=== PATIENT | male | born 1980 | race Caucasian/White ===

== ENCOUNTER 2016-10-09 06:37 | Observation (INO) | payer OTHER ==
[~2016-10-09] VITALS: Ht 180.3 cm; Wt 105.0 kg
[2016-10-09] MEDS ORDERED: ONDANSETRON (ODT) 4 MG TAB ODT STA (07:13)
--- NOTE | 2016-10-09 07:21 | ERD ---
ER Documentation Chief Complaint Date/Time DATE: 10/09/16 TIME: 07:15 Chief Complaint left rib pain from a fall this am. no loc no neck or back pain HPI The patient is a 35-year-old male with no significant past medical history who presents for left rib pain status post trip and fall in the shower this morning. He reports turning around quickly to close a window and he slipped. He fell directly on the edge of the tub on his left rib cage. He denies hitting his head, shoulder, hip, or any other part of his body. He denies loss of consciousness, nausea, vomiting, feeling dazed, or any other symptoms. He denies respiratory distress, difficulty breathing, chest pain. He states that his pain is severe at 12/10, worse with inhalation and movement. ROS All systems reviewed and are negative except as per history of present illness. Physical Exam Vitals Vital Signs Date Time Temp Pulse Resp B/P Pulse Ox O2 Delivery O2 Flow Rate FiO2 10/09/16 06:41 98.5 101 21 141/92 99 Physical Exam INITIAL VITAL SIGNS: Reviewed by me, oximetry 99% on room air. GENERAL: Alert. Well developed and well nourished. No respiratory distress. Appears in pain, moaning. HEAD: Head is normocephalic. Atraumatic. EYES: EOMI. No scleral icterus. No conjunctival injection. ENT: External ears, nose, and mouth normal. Nasal passages patent. Moist mucous membranes. NECK: Supple. Full range of motion. Trachea midline. No bony or myofascial tenderness palpation. No step-off. RESPIRATORY: No tachypnea. Clear to auscultation bilaterally. No wheezing, rales , or rhonchi. CHEST: No external signs of trauma. Normal excursion with respiration. No flail. Left lower rib gill box tender to palpation. No ecchymosis. CV: Regular rate and rhythm. No murmurs, rubs, or gallops ABDOMEN: Soft, non-distended, non-tender. No masses. Bowel sounds normal in all quadrants. BACK: No CVA tenderness. No bony or myofascial tenderness to palpation. No step- off. No external signs of trauma. EXTREMITIES: No obvious deformity. No clubbing or cyanosis. No edema. SKIN: Warm and dry. No diaphoresis. No obvious rashes or lesions. NEUROLOGIC: Alert and oriented x 3. Appropriate. Face is symmetric. Speech is normal. Moves all extremities equally. Results 24 hrs Current Medications Medications (Trade) Dose Ordered Sig/Channing Route PRN Reason Start Time Stop Time Status Last Admin Dose Admin Morphine Sulfate (morphine) 4 mg ONCE ONCE IM 10/09/16 07:30 10/09/16 07:31 DC 10/09/16 07:20 Ondansetron HCl (Zofran Odt) 4 mg ONCE STAT ODT 10/09/16 07:13 10/09/16 07:15 DC 10/09/16 07:20 Ketorolac Tromethamine (Toradol) 30 mg ONCE STAT IM 10/09/16 08:11 10/09/16 08:12 DC 10/09/16 08:21 Ondansetron HCl (Zofran Inj) 4 mg BRIDGE ORDER PRN IV NAUSEA AND/OR VOMITING 10/09/16 10:00 10/10/16 09:59 Acetaminophen (Tylenol Tab) 650 mg ER BRIDGE PRN PO MILD PAIN/FEVER 10/09/16 10:00 10/10/16 09:59 [place] [id number] Radiology Main Line: [phone] DIAGNOSTIC IMAGING REPORT Patient: SHELDON ABRAHAM : 1980 Age: 35 Sex: M MR #: [id number] DOS: 10/09/16 0712 Ordering MD: RADHIKA CURIEL NP Location: [facility] Room/Bed: PROCEDURE: Xray bilateral ribs and chest. CLINICAL INDICATION: Trauma. Bilateral rib pain. TECHNIQUE: Frontal and oblique views of the bilateral ribs. Frontal view of the chest. Total of 8 views. COMPARISON: None available FINDINGS: There is mild left basilar atelectasis. The lungs are otherwise clear. The heart size is normal. There is no pleural effusion or pneumothorax. There are acute nondisplaced fractures of the left seventh, eighth, ninth, and tenth ribs. There is no other rib fracture. There is no lytic or blastic lesion. No radiopaque foreign body is identified. The soft tissues are unremarkable. IMPRESSION: 1. Mild left basilar atelectasis. 2. Acute fractures of the left seventh, eighth, ninth, and tenth ribs. 3. No pneumothorax. 4. Otherwise unremarkable study. RPTAT: QQ .Brayden Shah MD, MD Date Time Electronically viewed and signed by .Brayden Shah MD, on 10/09/2016 08:12 .R/ CC: RADHIKA CURIEL, CLIVE Procedures/MDM Nursing Notes Reviewed Previous Medical Records requested via [employer]. EMERGENCY DEPARTMENT COURSE / MEDICAL DECISION MAKING: The patient comes to the ED secondary to left-sided rib pain status post slip and fall in the shower approximately 30 minutes prior to arrival. Differential diagnosis upon initial evaluation includes but is not limited to: Rib fracture, rib dislocation, pneumothorax, concussion/TBI, spinal injury, and others. The patient was treated with morphine 4 mg IM, Zofran 4 mg by mouth. Toradol 30mg IM. Left rib x-ray per radiology report: IMPRESSION: 1. Mild left basilar atelectasis. 2. Acute fractures of the left seventh, eighth, ninth, and tenth ribs. 3. No pneumothorax. 4. Otherwise unremarkable study. The patient denies hitting his head, loss of consciousness, feeling dazed, nausea, or vomiting. As such, I have low suspicion at this time for concussion/ TBI. The patient denies any neck or back pain. His neck and back exams were normal and benign. As such, I have low suspicion at this time for any bony back injury, disc injury, nerve injury, or cord compression. The patient's breathing is even and unlabored. His lungs are clear to auscultation bilaterally. His lungs were normal on x-ray series. As such, I have low suspicion for pneumothorax at this time. Final impression: Acute fractures of the left seventh, eighth, ninth, and tenth ribs The case was discussed with supervising physician Dr. Mclaughlin. The patient will be admitted to the hospital for pain control. Departure Diagnosis: Primary Impression: Ribs, multiple fractures RADHIKA CURIEL, CLIVE Oct 09, 2016 07:21 RADHIKA CURIEL NP Oct 09, 2016 07:21
[2016-10-09] MEDS ORDERED: morphine 10 MG INJ IM ONE (07:30)
[2016-10-09] MEDS ORDERED: KETOROLAC 30 MG INJ IM STA (08:11)
--- NOTE | 2016-10-09 08:12 | RADRPT ---
PROCEDURE: Xray bilateral ribs and chest. CLINICAL INDICATION: Trauma. Bilateral rib pain. TECHNIQUE: Frontal and oblique views of the bilateral ribs. Frontal view of the chest. Total of 8 views. COMPARISON: None available FINDINGS: There is mild left basilar atelectasis. The lungs are otherwise clear. The heart size is normal. There is no pleural effusion or pneumothorax. There are acute nondisplaced fractures of the left seventh, eighth, ninth, and tenth ribs. There is no other rib fracture. There is no lytic or blastic lesion. No radiopaque foreign body is identified. The soft tissues are unremarkable. IMPRESSION: 1. Mild left basilar atelectasis. 2. Acute fractures of the left seventh, eighth, ninth, and tenth ribs. 3. No pneumothorax. 4. Otherwise unremarkable study. RPTAT: QQ .Brayden Shah MD, Date Time Electronically viewed and signed by .Brayden Shah MD, on 10/09/2016 08:12 .R/
[2016-10-09] MEDS ORDERED: ACETAMINOPHEN 325 MG TAB PO PRN ×2 (10:00→16:30)
[2016-10-09] MEDS ORDERED: ONDANSETRON 4 MG INJ IV PRN (10:00)
[2016-10-09] MEDS ORDERED: ONDANSETRON 4 MG INJ IV STA (12:46)
[2016-10-09] MEDS ORDERED: morphine 4 MG/ML VIAL IV STA (12:46)
[2016-10-09] MEDS ORDERED: ONDANSETRON 4 MG TAB PO PRN (16:30)
[2016-10-09] MEDS ORDERED: DOCUSATE SODIUM 100 MG CAP PO PRN (16:30)
[2016-10-09] MEDS ORDERED: NACL 0.9% 3 ML SYG IV SCH (16:30)
[2016-10-09] MEDS: PANTOPRAZOLE (EC) 40 MG TAB PO SCH (16:32)
--- NOTE | 2016-10-09 18:20 | HP ---
DATE OF ADMISSION: 10/09/2016 MACHINING AND ASSEMBLY SUPERVISOR: None. CHIEF COMPLAINT: Status post fall and left axillary pain. HISTORY OF PRESENT ILLNESS: This is a 35-year-old gentleman with past medical history of alcoholism , alcoholic gastritis, nicotine dependency, smokes about 10 to 15 cigarettes per day, who this irene ng was in the shower and had a slip and fall and hit his left side of his chest to a bar in the show er. He tried to go back to sleep and sleep off the pain, although he was not able to be deep and th e pain was unbearable. Therefore, he presented to [facility] Emergency Room where he was f ound to have acute fracture of the left 7, 8, 9, and 10 ribs. No pneumothorax, otherwise unremarkab le study. He was treated with Zofran, morphine, Tylenol, Toradol in the course of the emergency eileen m. At this time, the patient denies any shortness of breath, chest pain, nausea, vomiting, diarrhea . No headache, dizziness, lightheadedness. No change in visual acuity, diplopia, photophobia. No recent travel history. No sick contact. He denies of having any recent history of alcohol intake f or the past month. No illicit drugs. He still smokes about 10 to 15 cigarettes, [place], per day. At this time, patient denies having any discomfort, except mild left-sided axillary pain. PAST MEDICAL AND SURGICAL HISTORY: As above per HPI. MEDICATIONS: None. ALLERGIES: NO KNOWN DRUG ALLERGIES. FAMILY HISTORY: No history of cancer, myocardial infarction, diabetes mellitus. SOCIAL HISTORY: Positive for history of alcohol abuse, in remission since last month. Positive for smoking 10 to 15 cigarettes per day for the past 10 years. No illicit drugs. REVIEW OF SYSTEMS: As above per HPI, otherwise 12 review of systems has been found to be negative. PHYSICAL EXAMINATION: VITAL SIGNS: Temperature 98.5, pulse 58, respiration 18, blood pressure 127/64, oxygen saturation 9 8% in room air. GENERAL APPEARANCE: The patient is lying in the bed comfortably without any acute distress. He is awake, alert, oriented. He is able to answer my questions properly. EYES AND ENT: Conjunctivae and lids are normal. Pupils are normal. Extraocular normal. Hearing g rossly normal. Pupils are normal. Oral mucosa is moist. NECK: Supple. Trachea is midline. No lymphadenopathy. RESPIRATORY: Effort is normal. Clear to auscultation bilaterally. CARDIOVASCULAR: Normal S1, S2. Regular rhythm and rate. No murmur, no bruits, no edema. Peripher al pulses, radial pulses palpable. Cap refill is normal. CHEST: Normal expansion of thorax during inspiration, although during the deep inspiration he has p ain in the left axillary region. GASTROINTESTINAL: Abdomen is soft, nontender, not distended. Bowel sounds present. No guarding, n o rebound. GENITOURINARY: Deferred. MUSCULOSKELETAL: Upper and lower extremities within normal limits. Full range of motion. Strength 5/5 in both upper and lower extremities. NEUROLOGIC: Cranial nerves II through XII are grossly intact. PSYCHIATRIC: Normal judgment and insight. Alert and oriented x3. Mood and affect is normal. LABORATORY WORK AND IMAGING: Chest x-ray/x-ray bilateral rib and chest showed mild left basilar ate lectasis, acute fracture of the left 7, 8, 9, and 10 ribs. No pneumothorax, otherwise unremarkable study. ASSESSMENT AND PLAN: 1. Left-sided rib fractures from 7 to 10. The patient will be placed on pain medication via Percoc et, morphine. Encourage incentive spirometer. Will followup chest x-ray in a.m. to review for pneu mothorax. At this time, there is no evidence of pneumothorax on chest x-ray. 2. For deep venous thrombosis prophylaxis, on sequential compression devices and the patient is amb ulatory. 3. For gastrointestinal prophylaxis, on proton pump inhibitor. 4. History of alcoholism. Education was provided. The patient has been instructed to quit drinkin g and has been started on folic acid, multivitamin, and thiamine. 5. Nicotine dependency. Education was provided regarding the risks of smoking. Smoking cessation was recommended. The patient has been started on nicotine patch. Total amount of time was spent for evaluation of this patient and admission workup 45 minutes. Dictated By: LIANA WATTERS/DAWSON Conf#: [id number] DID#: [id number]
[2016-10-09 20:00] VITALS: BP 169/80; RESP 20; TEMP 98.5
[2016-10-09 20:30] VITALS: Ht 180.3 cm; Wt 105.0 kg
[2016-10-09 20:40] VITALS: PULSE 68
[2016-10-09 21:00] VITALS: BP 169/80; RESP 20
[2016-10-09] MEDS: OXYCODONE/ACETAMINOPHEN (5/325) TAB PO PRN (21:06)
[2016-10-09] MEDS: morphine 2 MG INJ IV PRN (22:53)
[2016-10-10] VITALS (8 sets, daily range): BP systolic 103–130; BP diastolic 62–72; PULSE 59–87; RESP 15–18
[2016-10-10] MEDS: IBUPROFEN 600 MG TAB PO PRN ×2 (01:48→13:06)
[2016-10-10] MEDS: morphine 2 MG INJ IV PRN ×2 (04:36→11:15)
[2016-10-10] MEDS: PANTOPRAZOLE (EC) 40 MG TAB PO SCH (05:52)
[2016-10-10] MEDS ORDERED: PANTOPRAZOLE (EC) 40 MG TAB PO SCH (06:00)
[2016-10-10 07:50] LABS: POTASSIUM 4.3 mmol/L (3.5-5.1)
[2016-10-10 07:53] LABS: CREATININE 0.6 mg/dl (0.61-1.24)
[2016-10-10 07:54] LABS: CALCIUM 8.4 mg/dl (8.4-10.2)
[2016-10-10 08:03] LABS: BASOPHILS % 0.5 % (0.0-2.0); EOSINOPHILS # 0.5 10^3/ul (0.0-0.5); EOSINOPHILS % 8.8 % (0.0-7.0); HEMATOCRIT 32.9 % (42.0-52.0); HEMOGLOBIN 11.6 g/dl (14.0-18.0); LYMPHOCYTES # 1.8 10^3/ul (0.8-2.9); LYMPHOCYTES % 35.1 % (15.0-51.0); MEAN CORPUSCULAR HEMOGLOBIN 34.3 pg (29.0-33.0); MEAN CORPUSCULAR HGB CONC 35.4 g/dl (32.0-37.0); MEAN CORPUSCULAR VOLUME 96.8 fl (82.0-101.0); MEAN PLATELET VOLUME 10.7 fl (7.4-10.4); MONOCYTE # 0.6 10^3/ul (0.3-0.9); MONOCYTES % 11.6 % (0.0-11.0); NEUTROPHIL # 2.3 10^3/ul (1.6-7.5); PLATELET COUNT 81 10^3/UL (140-440); RED BLOOD COUNT 3.39 10^6/ul (4.70-6.10); RED CELL DISTRIBUTION WIDTH 13.7 % (11.5-14.5); UNCORRECTED WBC 5.2 10^3/ul (4.8-10.8); WHITE BLOOD COUNT 5.2 10^3/ul (4.8-10.8)
[2016-10-10 08:05] LABS: CONDITION 1
[2016-10-10] MEDS: OXYCODONE/ACETAMINOPHEN (5/325) TAB PO PRN ×2 (08:13→16:54)
[2016-10-10] MEDS ORDERED: NICOTINE (14 MG/24 HR) PATCH TRANSDERM SCH (09:00)
[2016-10-10] MEDS ORDERED: MULTIVITAMINS THERAPEUTIC TAB PO SCH (09:00)
[2016-10-10] MEDS ORDERED: THIAMINE 100 MG TAB PO SCH (09:00)
[2016-10-10] MEDS ORDERED: FOLIC ACID 0.4 MG TAB PO SCH (09:00)
--- NOTE | 2016-10-10 14:59 | PDOCDIS ---
Discharge Instructions CONDITION Patient Condition: Good HOME CARE INSTRUCTIONS: Special Diet: regular ACTIVITY: Activity Restrictions: Slowly Increase Activity Rest between Activity Avoid heavy lifting Do not operate Power Tool Avoid Heavy Housework FOLLOW UP/APPOINTMENTS Appointments Follow-up with primary care physician as outpatient OTHER ORDERS: Other Orders: In case of any chest pain or shortness of breath return to emergency room immediately SCHOOL/WORK RELEASE May return to School/Work with: With Restrictions (Light activity 4 weeks) LIANA RONDON MD Oct 10, 2016 14:59
[2016-10-10] MEDS ORDERED: MULTI PO (15:02)
[2016-10-10] MEDS ORDERED: Nicotine (14 Mg/24 Hr) TRANSDERM (15:02)
[2016-10-10] MEDS ORDERED: Thiamine PO (15:02)
[2016-10-10] MEDS ORDERED: IBUP-1542 PO (15:02)
[2016-10-10] MEDS ORDERED: FOLI0.4T2 PO (15:02)
[2016-10-10] MEDS ORDERED: Oxycodone/Acetamin (5/325) PO (15:02)
--- NOTE | 2016-10-10 18:29 | DS ---
DATE OF ADMISSION: 10/09/2016 DATE OF DISCHARGE: 10/10/2016 MOLECULAR PATHOLOGIST: None. DIAGNOSES: 1. Left-sided rib fractures from 7 to 10. 2. Thrombocytopenia secondary to history of alcohol abuse. 3. History of alcohol abuse. 4. Nicotine dependency. MEDICATIONS: 1. Folic acid. 2. Thiamine. 3. Ibuprofen. 4. Multivitamin. 5. Nicotine patch. 6. Percocet. ALLERGIES: NO KNOWN DRUG ALLERGIES. HOSPITAL COURSE: This is a 35-year-old gentleman with past medical history of alcoholism, alcoholic gastritis, nicotine dependency who smokes about 5 to 15 cigarettes per day who on the morning of had a slip and fall and hit his left side of chest to the bar in the shower. He tried to g et back to sleep and sleep off the pain, although he was not able to take deep breaths and pain was unbearable. Therefore, he presented to [facility], where he was found to elliott ve acute fracture of the left 7th to 10th ribs on the left side. There was no pneumothorax, otherwi se unremarkable study. The patient was started on Zofran, morphine, Tylenol, was admitted to [facility] floor, where he has been continued on pain medications. He denies having any chest pain, shortn ess of breath, nausea, vomiting, diarrhea at this time. The patient has been able to tolerate oral intake, although with activity, he continues to have left-sided pain. An incentive spirometer was p rovided. At this time, the patient is medically stable to be discharged home with close followup wi th his primary care physician as outpatient. The patient was found to have thrombocytopenia with pl atelets of 81. This is likely secondary to his history of alcoholism. Great amount of information was provided. The patient was instructed to stop drinking and stop smoking. Dictated By: LIANA WATTERS/NTS Conf#: [id number] DID#: [id number]
[2016-10-11] MEDS ORDERED: INFLUENZA VIRUS VACCINE 0.5 ML (DISPENSING) IM* ONE (09:00)
== END 2016-10-10 17:51 | disposition home or self-care (01) ==
LOC: FTE 06:37 → MS4 09:51
PROVIDERS: ADMIT Family Medicine; ATTEND Family Medicine
DX: S22.42XA Multiple fractures of ribs, left side, initial encounter for closed fracture (principal); F17.210 Nicotine dependence, cigarettes, uncomplicated; F10.21 Alcohol dependence, in remission; W18.2XXA Fall in (into) shower or empty bathtub, initial encounter; Y93.9 Activity, unspecified; Y99.9 Unspecified external cause status; Y92.9 Unspecified place or not applicable
CPT/HCPCS: 71110; 80048; 85025; 96372; 96374; 96375; 96376; J1885; J2270; J2405; Z7500; Z7502; Z7610; G0378

== ENCOUNTER 2017-12-03 12:13 | Day surgery (SDC) | END 2017-12-03 17:58 | disposition home or self-care (01) ==

== ENCOUNTER 2018-03-04 21:21 | Emergency (ER) | END 2018-03-05 01:47 | disposition home or self-care (01) ==

== ENCOUNTER 2018-04-21 18:25 | Inpatient (IN) | END 2018-04-23 15:00 | disposition left against medical advice (07) | DRG 159 ==

== ENCOUNTER 2018-10-11 20:17 | Emergency (ER) | payer OTHER ==
[~2018-10-11] VITALS: Ht 180.3 cm; Wt 104.5 kg
[~2018-10-11 20:17] MED LIST: FLUC200T52 PO; GABA100C14 PO; HYDR-4011 PO; LOSA25TA12 PO; METF500T24 PO; NADO40TA31 PO; NAPR-688 PO; PANT40TA4 PO; THIA100T56 PO; [UNRECOGNIZED DRUG - CODE] SL
[2018-10-11 21:08] VITALS: Ht 180.3 cm; Wt 104.5 kg
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
[2018-10-11] MEDS ORDERED: KETOROLAC 15 MG INJ IM STA (23:06)
[2018-10-11] MEDS ORDERED: CHLO473M4 MM (23:23)
[2018-10-11] MEDS ORDERED: PRED20TA PO (23:23)
[2018-10-11] MEDS ORDERED: predniSONE 20 MG TAB PO ONE (23:30)
[2018-10-11] MEDS ORDERED: CHLORHEXIDINE GLUCONATE 15 ML UD CUP MT ONE (23:30)
[2018-10-12 00:30] VITALS: BP 151/97; PULSE 89; RESP 18
== END 2018-10-12 00:45 | disposition home or self-care (01) ==
LOC: E/R 20:17
DX: K12.1 Other forms of stomatitis (principal); I10 Essential (primary) hypertension; E11.9 Type 2 diabetes mellitus without complications; Z79.84 Long term (current) use of oral hypoglycemic drugs; Z87.891 Personal history of nicotine dependence
CPT/HCPCS: 96372; J1885; J7512; Z7502; Z7610

== ENCOUNTER 2018-11-04 13:20 | Emergency (ER) | payer OTHER ==
[~2018-11-04] VITALS: Ht 180.3 cm; Wt 104.9 kg
[~2018-11-04 13:20] MED LIST changes: +CHLO473M4 MM; -FLUC200T52 PO; -GABA100C14 PO; -HYDR-4011 PO; -NAPR-688 PO; +PRED20TA PO; -THIA100T56 PO
[2018-11-04 13:48] VITALS: BP 147/86; PULSE 76; RESP 18; Ht 180.3 cm; Wt 104.9 kg
[2018-11-04] MEDS ORDERED: PRED20TA PO (15:21)
--- NOTE | 2018-11-04 15:50 | ERD ---
ER Documentation Chief Complaint Chief Complaint painful pen sores inside mouth X 1 month HPI Patient is a 38-year-old male with diabetes who presents with sores inside of his mouth. He says that he wants a refill for steroids. He has had a history of mouth sores off and on since September. They are painful. He tried Neosporin. Upon review of old medical records the patient has previous visits for similar. Review of the emergency department information exchange system shows visits to 2 separate emergency department. He does have a primary doctor and a infectious disease doctor Dr. Viveros. ROS All systems reviewed and are negative except as per history of present illness. Medications Home Meds Active Scripts Prednisone* (Prednisone*) 20 Mg Tab, 60 MG PO DAILY for 5 Days, TAB Prov:EMILIO VALDEZ MD 11/04/18 Prednisone (Prednisone) 20 Mg Tab, 40 MG PO DAILY for 4 Days, TAB Prov:YUE HANSEN MD 10/11/18 Chlorhexidine Gluconate (Peridex) 473 Ml Mouthwash, 15 ML MM BID PRN for PAIN, #1 BOTTLE Prov:YUE HANSEN MD 10/11/18 Reported Medications Cyanocobalamin (Vitamin B-12) (Vitamin B-12) 1,000 Mcg Tab.subl, 1000 MCG SL DAILY 04/23/18 Pantoprazole* (Pantoprazole*) 40 Mg Tablet.dr, 40 MG PO AC BREAKFAST, TAB 04/23/18 Metformin Hcl* (Metformin Hcl*) 500 Mg Tablet, 1000 MG PO WITH BREAKFAST DINNE, #60 TAB 04/23/18 Losartan Potassium* (Losartan Potassium*) 25 Mg Tablet, 25 MG PO DAILY, TAB 04/23/18 Nadolol* (Corgard*) 40 Mg Tab, 40 MG PO DAILY, #30 TAB 04/23/18 Allergies Allergies: Coded Allergies: No Known Allergy (Unverified , 04/23/18) PMhx/Soc History of Surgery: Yes (BANDING OF ESOPHAGEAL VARICES) Anesthesia Reaction: No Hx Neurological Disorder: No Hx Respiratory Disorders: No Hx Cardiac Disorders: Yes (HTN) Hx Psychiatric Problems: No Hx Miscellaneous Medical Probl: Yes (DM, GERD, liver cirrhosis) Hx Alcohol Use: Yes Hx Substance Use: Yes (MARIJUANA) Hx Tobacco Use: Yes Smoking Status: Never smoker FmHx Family History: diabetes Physical Exam Vitals Vital Signs Date Temp Pulse Resp B/P (MAP) Pulse Ox O2 O2 Flow FiO2 Time Delivery Rate 11/04/18 98.1 76 18 147/86 99 13:48 (106) Physical Exam Const: No acute distress Head: Atraumatic Eyes: Normal Conjunctiva ENT: Aphthous ulcers inside the mouth Neck: Full range of motion. No meningismus. Resp: Clear to auscultation bilaterally Cardio: Regular rate and rhythm, no murmurs Abd: Soft, non tender, non distended. Normal bowel sounds Skin: No petechiae or rashes Back: No midline or flank tenderness Ext: No cyanosis, or edema Neur: Awake and alert Psych: Normal Mood and Affect Procedures/MDM Smoking Cessation Therapy: Pt. was lectured for greater than 3 minutes on the health risks of continued smoking and the benefits of cessation. Patient is a 38-year-old male who presents with what appears to be acute aphthous ulcers. I do not believe the patient requires further workup or admis kristine to the hospital at this time. I believe outpatient management is appropriate. The patient will need close follow-up with his primary doctor within 1 week. He will be given a prescription for 5 days of prednisone as this has worked for him in the past. Departure Diagnosis: Primary Impression: Aphthous stomatitis Condition: Fair Patient Instructions: Aphthous Ulcer Referrals: Your doctor Additional Instructions: Call your primary care doctor TOMORROW for an appointment during the next 1 WEEK.Tell the vineyardist that you were referred from this facility.See the doctor sooner or return here if your condition worsens before your appointment time. EMILIO VALDEZ MD Nov 04, 2018 15:50
== END 2018-11-04 15:44 | disposition home or self-care (01) ==
LOC: FTE 13:20
DX: K12.0 Recurrent oral aphthae (principal); E11.9 Type 2 diabetes mellitus without complications; I10 Essential (primary) hypertension; Z79.84 Long term (current) use of oral hypoglycemic drugs
CPT/HCPCS: 99283

== ENCOUNTER 2018-11-09 10:24 | Emergency (ER) | payer OTHER ==
[~2018-11-09] VITALS: Ht 172.7 cm; Wt 105.0 kg
[2018-11-09 11:02] VITALS: BP 203/101; PULSE 113; RESP 16; Ht 172.7 cm; Wt 105.0 kg
[2018-11-09] MEDS ORDERED: [UNRECOGNIZED DRUG - CODE] IJ (16:24)
[2018-11-09] MEDS ORDERED: ACYC800T5 PO (16:24)
[2018-11-09] MEDS ORDERED: NYST1000 PO (16:24)
[2018-11-09] MEDS ORDERED: GABA300C16 PO (16:24)
[2018-11-09] MEDS ORDERED: PRED20TA PO (16:27)
--- NOTE | 2018-11-09 17:42 | ERD ---
ER Documentation Chief Complaint Chief Complaint would like refill for prednisone dx sade BAUTISTA Is a 38-year-old male patient who presents to the emergency room with complaint of recurrent aphthous stomatitis. Patient states he has been dealing with this since February. He is under the care of his primary care physician and infectious disease specialist and ulcers continue to return. Patient tearful in exam room. Patient states he is lost 60 pounds. Denies recent fevers. Requesting prednisone. Medical history significant for diabetes. Patient at the emergency room today as cannot get into his infectious disease specialist 2 months. ROS All systems reviewed and are negative except as per history of present illness. Medications Home Meds Active Scripts Prednisone* (Prednisone*) 20 Mg Tab, 40 MG PO DAILY for 4 Days, TAB Prov:MALLORY CLEANING NP 11/09/18 Gabapentin* (Gabapentin*) 300 Mg Capsule, 300 MG PO QHS PRN for SLEEP for 10 Days, #10 CAP Prov:MALLORY CLEANING NP 11/09/18 Nystatin (Nystatin) 100,000 Unit/1 Ml Oral.susp, 4 ML PO QID for mouth pain for 10 Days, #400 ML Swish and swallow Prov:MALLORY CLEANING NP 11/09/18 Acyclovir* (Zovirax*) 800 Mg Tablet, 800 MG PO BID for 10 Days, #20 TAB Prov:MALLORY CLEANING NP 11/09/18 Prednisone* (Prednisone*) 20 Mg Tab, 60 MG PO DAILY for 5 Days, TAB Prov:EMILIO VALDEZ MD 11/04/18 Prednisone (Prednisone) 20 Mg Tab, 40 MG PO DAILY for 4 Days, TAB Prov:YUE HANSEN MD 10/11/18 Chlorhexidine Gluconate (Peridex) 473 Ml Mouthwash, 15 ML MM BID PRN for PAIN, #1 BOTTLE Prov:YUE HANSEN MD 10/11/18 Reported Medications Cyanocobalamin (Vitamin B-12) (Vitamin B-12) 1,000 Mcg Tab.subl, 1000 MCG SL DAILY 04/23/18 Pantoprazole* (Pantoprazole*) 40 Mg Tablet.dr, 40 MG PO AC BREAKFAST, TAB 04/23/18 Metformin Hcl* (Metformin Hcl*) 500 Mg Tablet, 1000 MG PO WITH BREAKFAST DINNE, #60 TAB 04/23/18 Losartan Potassium* (Losartan Potassium*) 25 Mg Tablet, 25 MG PO DAILY, TAB 04/23/18 Nadolol* (Corgard*) 40 Mg Tab, 40 MG PO DAILY, #30 TAB 04/23/18 Discontinued Scripts Lidocaine HCl/Pf (Lidocaine 200 mg/10 ml(2%) Syr) 200 Mg/10 Ml Syringe, 15 ML IJ Q4 PRN for PAIN for 10 Days, #250 1 Refill Prov:MALLORY CLEANING MEDICAL TECHNOLOGIST 11/09/18 Allergies Allergies: Coded Allergies: No Known Allergy (Unverified , 04/23/18) PMhx/Soc History of Surgery: Yes (BANDING OF ESOPHAGEAL VARICES) Anesthesia Reaction: No Hx Neurological Disorder: No Hx Respiratory Disorders: No Hx Cardiac Disorders: Yes (HTN) Hx Psychiatric Problems: No Hx Miscellaneous Medical Probl: Yes (DM, GERD, liver cirrhosis) Hx Alcohol Use: Yes Hx Substance Use: No Hx Tobacco Use: No Smoking Status: Unknown if ever smoked FmHx Family History: No diabetes, No coronary disease, No other Physical Exam Vitals Vital Signs Date Temp Pulse Resp B/P (MAP) Pulse Ox O2 O2 Flow FiO2 Time Delivery Rate 11/09/18 98.0 113 16 203/101 96 11:02 (135) Physical Exam Const: No acute distress Head: Atraumatic Eyes: Normal Conjunctiva ENT: Normal External Ears and Nose. Mouth with multiple papule aphthous ulcers on inside of upper lip, along ridge of upper and lower teeth, tongue and buccal surfaces and pharynx red patient describes burning on fire sensation. Tongue normal shape, texture, slight white exudate covering tongue. Neck: Full range of motion. No meningismus. Resp: Clear to auscultation bilaterally Cardio: Regular rate and rhythm, no murmurs Abd: Soft, non tender, non distended. Normal bowel sounds Skin: No petechiae or rashes Back: No midline or flank tenderness Ext: No cyanosis, or edema Neur: Awake and alert Psych: Normal Mood and Affect Procedures/MDM 38-year-old male patient who presents to the emergency room for recurrent aphthous stomatitis. Long discussion had with patient regarding testing including HIV testing and prior treatments that have worked. Patient states he had been on acyclovir in the past and it was beneficial. Additionally patient has not tried nystatin swish and swallow, which seems appropriate at this time as he is presenting with signs and symptoms of oral fungal infection. We also discussed his unrelenting pain especially during sleep. Patient has been trying ibuprofen without relief. Discussed use of gabapentin as agent for sleep and pain. Patient is going to attempt use of acyclovir, nystatin, gabapentin with a watch and wait prescrip tion for prednisone. Patient will initiate prednisone after other treatments if pain persists. Patient appreciative of time spent and plan of care. She states he is going to follow-up with his primary care physician and just see specialist. As with patient that emergency room is not appropriate place for continued care of this type of condition and patient needs to follow-up with his primary. Patient alert, appropriate, cooperative NAD, appropriate for outpatient treatment. Patient hypertensive at triage. Patient being treated for HTN as outpatient. Patient denies CP, no DOHERTY, no epistaxis. Pt departed prior to assessment of dis charge vitals. Departure Diagnosis: Primary Impression: Recurrent aphthous ulcer Condition: Stable Patient Instructions: Oral Thrush, Aphthous Ulcer, Canker Sore (Child) Referrals: [facility] YOU HAVE RECEIVED A MEDICAL SCREENING EXAM AND THE RESULTS INDICATE THAT YOU DO NOT HAVE A CONDITION THAT REQUIRES URGENT TREATMENT IN THE EMERGENCY DEPARTMENT. FURTHER EVALUATION AND TREATMENT OF YOUR CONDITION CAN WAIT UNTIL YOU ARE SEEN IN YOUR DOCTORS OFFICE WITHIN THE NEXT 1-2 DAYS. IT IS YOUR RESPONSIBILITY TO MAKE AN APPOINTMENT FOR FOLOW-UP CARE. IF YOU HAVE A PRIMARY DOCTOR --you should call your primary doctor and schedule an appointment IF YOU DO NOT HAVE A PRIMARY DOCTOR YOU CAN CALL OUR PHYSICIAN REFERRAL HOTLINE AT IF YOU CAN NOT AFFORD TO SEE A PHYSICIAN YOU CAN CHOSE FROM THE FOLLOWING [facility] [address] [facility] [address] [facility] [facility] [address] [facility] [address] [facility] [address] [facility]. [facility]. [address] Additional Instructions: Thank you very much for allowing us to participate in your care. Your health and safety is our top priority at [facility]. Call your primary care doctor TOMORROW for an appointment during the next 2-4 days and bring all the information and medications prescribed. Have prescriptions filled and follow precisely the directions on the label. If the symptoms get worse and your provider is unavailable, return to the Emergency Department immediately. Take acyclovir as prescribed, use nystatin swish and swallow holding solution in mouth for up to 15 seconds before swallowing. Use gabapentin at night for sleep. Use Vaseline or Aquaphor on lips. Use prednisone only if other prescriptions do not work. Follow-up with infectious disease specialist. Comments see [facility] notes MALLORY CLEANING NP Nov 09, 2018 17:42
== END 2018-11-09 16:44 | disposition home or self-care (01) ==
LOC: FTE 10:24
DX: K12.0 Recurrent oral aphthae (principal); I10 Essential (primary) hypertension; E11.9 Type 2 diabetes mellitus without complications; Z79.84 Long term (current) use of oral hypoglycemic drugs
CPT/HCPCS: 99283